=== PATIENT | female | born 1990 | race Caucasian/White ===

== ENCOUNTER 2019-10-28 08:41 | Emergency (ER) | payer MEDICAID ==
[~2019-10-28] VITALS: Ht 170.2 cm; Wt 86.2 kg
[2019-10-28 08:56] VITALS: BP 118/85; Ht 170.2 cm; Wt 86.2 kg
[2019-10-28 10:02] LABS: UA SPECIFIC GRAVITY 1.025 (1.005-1.035); microscopic required? YES; urine erythrocyte 3+ (NEGATIVE)
== END 2019-10-28 12:00 | disposition home or self-care (01) ==
LOC: EDSEX 08:41 → ED 08:41
PROVIDERS: Emergency Medicine
DX: N72 Inflammatory disease of cervix uteri (principal)
CPT/HCPCS: 87491; 87591; J0696